=== PATIENT | male | born 1975 | race Caucasian/White ===

== ENCOUNTER 2019-01-26 19:28 | Emergency (ER) | payer OTHER, SELFPAY ==
[2019-01-26 19:33] VITALS: BP 133/81; PULSE 66; RESP 16; TEMP 36.7; O2SAT 99
--- NOTE | 2019-01-26 19:58 | ED.GENADUL_ITS ---
Discharge Plan Disposition Patient Disposition: HOME Condition: Good Discharge Details Chief Complaint: Orthopedic Clinical Impression: Cellulitis of left anterior lower leg Primary Care Provider: Marty Alanis ED Provider: Hood Ruiz [place] Meds and New Rx's Prescriptions: New cephalexin 500 mg capsule 500 mg PO Q8H Qty: 17 RF: 0 Changed ibuprofen [Advil] 200 mg Tablet 600 mg PO Q6H PRNQty: 0 RF: 0 Discharge Instructions Instructions: Cellulitis (ED) Additional Instructions: Continue ibuprofen or acetaminophen as needed for discomfort. Antibiotic as directed. Follow-up with primary care next week if continued problems. Return to ED for increased pain, swelling, redness or any fever or chills. Referrals: Marty Alanis, [Primary Care Provider] - Medical Decision Making At this point would appear the patient has developed a cellulitis. It does not sound like he had any significant hematoma or bruising to attribute this to resolving hematoma. There was no obvious skin trauma but there must have been enough micro-abrasion to allow for bacterial injury. He is not febrile and otherwise looks well. We will place him on a course of cephalexin for 1 week. Continue ibuprofen or acetaminophen as needed for discomfort. Follow-up with primary care next week if not better. Return to ED for increasing pain, swelling, redness, fever or chills. HPI General Mode of arrival: ambulatory . Date/Time Provider Initiated Documentation: 01/26/19 19:41 . Limitations to Documentation: no limitations . Information obtained by: patient and RN notes reviewed . HPI Narrative: Patient presents to ED with continued pain and now some redness and swelling to the left crowell. Patient struck his crowell on a ladder which he has done in the past. This was about 10 days ago. There was no significant hematoma, bruising, skin breakage. He has been using ibuprofen as needed for discomfort. Thought it would get better and go away on its own like it has in the past. However, it has been getting worse and now has associated redness and swelling which was not there previously. He denies being ill otherwise. There is no fevers, chills, weakness. Related Data Home Medications Medication Instructions Recorded Confirmed cephalexin 500 mg PO Q8H #17 cap 01/26/19 ibuprofen [Advil] 600 mg PO Q6H PRN #0 tab 01/26/19 01/26/19 Previous Rx's Medication Instructions Recorded cephalexin 500 mg PO Q8H #17 cap 01/26/19 ibuprofen [Advil] 600 mg PO Q6H PRN #0 tab 01/26/19 Allergies Allergy/AdvReac Type Severity Reaction Status Date / Time No Known Allergies Allergy Verified 01/26/19 19:36 General Stated Complaint: Orthopedic TOÑO: 4 Review of Systems Narrative: As documented in HPI otherwise negative as below. Const: no fever, chills, weakness Resp: no cough, SOB, pleuritic pain CV: no CP, diaphoresis, edema, syncope GI: no abdominal pain, nausea, vomiting, diarrhea Neuro: no headache, numbness, focal weakness, confusion PFSH Surgical History (Updated 01/26/19 @ 20:08 by Hood Ruiz MD) Previous back surgery (Inactive) Social History Smoking/Tobacco Use Status: Never Drug use: Never Exam Const General: cooperative, comfortable and no acute distress Orientation: alert and oriented x3 Skin Trauma: no lacerations or abrasions Wounds: no wounds Extrem Other: Left lower extremity with tenderness, redness, mild swelling involving the lower medial aspect of the crowell. There is no calf tenderness. There is no generalized edema. There is no bony tenderness present. Normal range of motion at knee and ankle. Neurovascularly intact distally. Course Vital Signs Vital signs: Vital Signs Temperature 98.1 F 01/26/19 19:33 Pulse 66 01/26/19 19:33 Respiratory Rate 16 01/26/19 19:33 Blood Pressure 133/81 01/26/19 19:33 Pulse Oximetry 99 01/26/19 19:33 Temperature 98.1 F 01/26/19 19:33 Temperature Source Skin 01/26/19 19:33 Pulse 66 01/26/19 19:33 Respiratory Rate 16 01/26/19 19:33 Respiratory Effort Non-Labored 01/26/19 19:43 Blood Pressure 133/81 01/26/19 19:33 Blood Pressure Position Sitting 01/26/19 19:33 Pulse Oximetry 99 01/26/19 19:33 Oxygen Delivery Method Room Air 01/26/19 19:33 Oxygen Flow Rate 0 01/26/19 19:33 Pain Level 6 01/26/19 19:33
[2019-01-26] MEDS: Cephalexin 500 MG CAP, 4 CAPS/BTL PO (20:04)
== END 2019-01-26 20:10 | disposition home or self-care (01) ==
PROVIDERS: Emergency Provider Emergency Medicine; PCP Emergency Medicine
DX: L03.116 Cellulitis of left lower limb (principal); W22.8XXA Striking against or struck by other objects, initial encounter
CPT/HCPCS: 99283

== ENCOUNTER 2019-12-27 10:51 | Outpatient (CLI) | payer OTHER, SELFPAY ==
[2019-12-31 17:42] LABS: Patient Race White; SARS-CoV-2 RNA Undetected (Undetected); SARS-CoV-2 Specimen Source Nasal
== END 2019-12-27 11:11 ==
PROVIDERS: PCP Emergency Medicine; Visit Provider Emergency Medicine
DX: Z20.828 Contact with and (suspected) exposure to other viral communicable diseases (principal)
CPT/HCPCS: U0003

== ENCOUNTER 2020-01-07 01:47 | Outpatient (CLI) | payer OTHER, SELFPAY ==
[2020-01-11 20:58] LABS: Patient Race White; SARS-CoV-2 RNA Undetected (Undetected); SARS-CoV-2 Specimen Source Nasal
== END 2020-01-07 02:07 ==
PROVIDERS: PCP Emergency Medicine; Visit Provider Emergency Medicine
DX: Z11.59 Encounter for screening for other viral diseases (principal)
CPT/HCPCS: U0003

== ENCOUNTER 2020-07-12 19:11 | Outpatient (REF) | payer OTHER, SELFPAY ==
[2020-07-12 19:04] LABS: Calculated LDL 80 mg/dL (<100); Cholesterol 143 mg/dL (<200); HDL Cholesterol 46 mg/dL (40-60); Triglyceride 87 mg/dL (<150)
== END 2020-07-12 19:12 | disposition home or self-care (01) ==
LOC: NCHCN 19:11
PROVIDERS: PCP Emergency Medicine; Visit Provider Emergency Medicine
DX: Z00.00 Encounter for general adult medical examination without abnormal findings (principal); Z13.220 Encounter for screening for lipoid disorders
CPT/HCPCS: 80061

== ENCOUNTER 2021-01-07 16:47 | Emergency (ER) | payer OTHER, SELFPAY ==
[2021-01-07 16:57] VITALS: BP 119/68; PULSE 60; RESP 16; TEMP 37; O2SAT 99
--- NOTE | 2021-01-07 17:20 | ED.GENADUL_ITS ---
Discharge Plan Disposition Patient Disposition: HOME Condition: Improving Discharge Details Clinical Impression: Cellulitis of left leg Primary Care Provider: Marty Alanis ED Provider: Robert Oswald Home Meds and New Rx's Prescriptions: New doxycycline monohydrate 100 mg tablet 100 mg PO BID 7 Days Qty: 14 RF: 0 Continued triamcinolone acetonide 0.1 % cream 1 applic TP TID Qty: 80 RF: 0 Discharge Instructions Instructions: Cellulitis (ED) Additional Instructions: Elevate the leg above the level of the heart to reduce pain and swelling. I will ask our care management team to arrange a follow-up for you in vascular clinic for further evaluation. Return to the emergency room for any acute concerns. Take doxycycline as prescribed until finished. Medical Decision Making 45-year-old male presents with recurrence of left lower extremity cellulitis th at began this time after striking his anterior crowell on a hard object and suffering an abrasion. States he has had recurrent episodes of infections in that leg with poor healing for years time. He is otherwise well-appearing, is not a diabetic, and does appear to have a developing left lower extremity cellulitis. He questions referral for vascular lab testing to rule out underlying malperfusion which I do think is reasonable and care management to intact. I will place him on a course of doxycycline. He is stable and appropriate for discharge at this time. HPI General Mode of arrival: ambulatory . Date/Time Provider Initiated Documentation: 01/07/21 16:48 . Limitations to Documentation: no limitations . Information obtained by: patient . History of Present Illness 45 year old M presents to the emergency department with the chief complaint of Left crowell erythema, described as mild and similar to prior episodes, Quality is described as dull and constant, and is localized to the left and lower extremity. Patient reports no radiation. Patient started experiencing this hour(s) and it has been constant. No relieving factors improve symptom(s), No exacerbating factors reported . Patient notes denies fever/chills. Patient did receive the following treatments prior to arrival, none Related Data Home Medications Medication Instructions Recorded Confirmed triamcinolone acetonide 0.1 % 1 applic TP TID #80 gm 04/29/19 01/07/21 topical cream doxycycline monohydrate 100 mg PO BID 7 Days #14 tab 01/07/21 Previous Rx's Medication Instructions Recorded triamcinolone acetonide 0.1 % 1 applic TP TID #80 gm 04/29/19 topical cream doxycycline monohydrate 100 mg PO BID 7 Days #14 tab 01/07/21 Allergies Allergy/AdvReac Type Severity Reaction Status Date / Time No Known Allergies Allergy Verified 01/07/21 17:06 General Stated Complaint: Cellulitis TOÑO: 3 Review of Systems Narrative: 6 systems reviewed and otherwise negative [facility] Medical History Encounter for annual physical exam Varicose veins of left lower extremity Surgical History Previous back surgery Family History Mother No problems noted. Father No problems noted. Sister No problems noted. Sister No problems noted. Brother Depression Son No problems noted. Daughter No problems noted. Social History Smoking/Tobacco Use Status: Never Second Hand Exposure: Yes Smoking risk assessment performed?: Yes Alcohol Intake: current Alcohol Intake frequency: a few times a month Alcohol type: beer Drug use: Never Caregiver/Support person: No Household members: spouse and children Housing: house Pets and animals: Yes Sexually active: Yes Do you think of yourself as: straight/heterosexual Current gender identity: male What is your relationship status?: How often do you talk on the phone with friends or family?: three or more times per week How often do you get together with friends or relatives?: once per week How often do you attend oriental orthodox or temple services?: decline to answer Do you belong to any clubs or organized social groups?: no Panel score (0-1 are the most socially isolated patients): 2 What type of physical activity do you participate in: bicycling Duration: > 90 minutes/day Frequency: 1-2 times per week Seatbelt use: always Helmet use: Yes Helmet use: always Drive intox or ride w/intox wheelchair driver: No Do you feel safe at home: Yes Do you feel safe in your relationship?: Yes Exam Narrative Exam Narrative: GEN: awake, alert, oriented 3. Pleasant, well groomed, interactive. HEAD: Normocephalic, atraumatic ENT: Mucous membranes moist, oropharynx unremarkable, External ear exam unremarkable EXT: Full ROM, left mid anterior tibia with area of healing abrasion with surrounding erythema and warmth Neuro: Grossly normal neurologic exam, conversant, interactive. Psych: Speech fluent, thoughts congruent, affect normal Course Vital Signs Vital signs: Vital Signs Temperature 37 C 01/07/21 16:57 Pulse 60 01/07/21 16:57 Respiratory Rate 16 01/07/21 16:57 Blood Pressure 119/68 01/07/21 16:57 Pulse Oximetry 99 01/07/21 16:57 Temperature 37 C 01/07/21 16:57 Temperature Source Temporal Artery Scan 01/07/21 16:57 Pulse 60 01/07/21 16:57 Respiratory Rate 16 01/07/21 16:57 Respiratory Effort Non-Labored 01/07/21 17:03 Blood Pressure 119/68 01/07/21 16:57 Blood Pressure Position Sitting 01/07/21 16:57 Pulse Oximetry 99 01/07/21 16:57 Oxygen Delivery Method Room Air 01/07/21 16:57 Oxygen Flow Rate 0 01/07/21 16:57 Pain Level 7 01/07/21 16:57 PAWSS Have you Been Recently Intoxicated or Drunk Within the Last 30 days?: No Have you Ever Experienced Previous Episodes of Alcohol Withdrawal?: No Have you ever Experienced Withdrawal Seizures?: No Have you ever Experienced Delirium Tremens(DT)s?: No Have you ever undergone Alcohol Rehabilitation Treatment (i.e, inpt ot outpatient treatment programs)?: No Have you ever Experienced Blackouts?: No Have you ever Combined Alcohol with other Downers within the last 90 days?: No Have you ever Combined Alcohol with any other Substance of Abuse during the last 90 days?: No Positive Blood Alcohol level on Presentation? [PCS.BAL]: No Evidence of Increased Autonomic Activity (i.e. HR>120, tremor, sweating, agitation, nausea)?: No Result: 0
--- NOTE | 2021-01-07 17:27 | NUR.NOTE ---
Nursing Note: Referral given to Care Management to Vascular Surgery Clinic [facility] [place], for chronic poor healing left leg within 4 to 8 weeks. Liz Hackett
[2021-01-07] MEDS: Doxycycline Hyclate 100 MG, 2 CAPS/BTL PO (17:29)
--- NOTE | 2021-01-09 12:32 | CMPROGNOTE_ITS ---
- If Service Date Differs Date of service: 01/08/21 Time of Service: 12:32 Care Management Progress Note Florencio is seen in the ED for cellulitis of left leg. At the request of ED provider, CM coordinates a referral to [facility] [place] Vascular Surgery to assist Florencio in obtaining an appointment for evaluation and treatment.
== END 2021-01-07 17:32 | disposition home or self-care (01) ==
PROVIDERS: Emergency Provider Emergency Medicine; PCP Emergency Medicine
DX: L03.116 Cellulitis of left lower limb (principal)
CPT/HCPCS: 99283

== ENCOUNTER 2023-03-31 10:08 | Day surgery (SDC) | payer OTHER, SELFPAY ==
--- NOTE | 2023-03-30 13:38 | W.PM.DSUDISC ---
Date of service: 03/31/23 Time of Service: 12:23 Discharge Plan Disposition Patient Disposition: Home Condition: Good Discharge Details Reason For Visit: screening colonoscopy Attending Provider: Michael Mac Primary Care Provider: Souleymane Way Home Meds and New Rx's Prescriptions: Continued triamcinolone acetonide 0.1 % cream 1 applic TP TID Qty: 80 1RF Discontinued bisacodyl [Dulcolax (bisacodyl)] 5 mg tablet,delayed release (DR/EC) 5 mg PO ONCE Qty: 4 0RF Rx Instructions: Colonoscopy Bowel Prep- Per Instructions polyethylene glycol 3350 17 gram/dose powder 238 g PO ONCE Qty: 238 0RF Rx Instructions: Colonoscopy Bowel Prep- Per Instructions Discharge Instructions Additional Instructions: Florencio, we are able to complete your colonoscopy today without any difficulty. It was totally normal. Because of your family history of colorectal cancer. I recommend a 5-year screening interval for your next few colonoscopies. If those are all normal, you could give stronger consideration to the timing. 1. If tolerated, consume a soft, low fiber diet for 1-2 days. 2[address] Do not drive, drink alcohol, operate machinery, make critical decisions, or do activities that require coordination or balance for 24 hours. 3. Because air was put into your colon during the procedure, expelling air from your rectum (passing gas or farting) is normal. 4. You may not have a bowel movement for 1-3 days because of the colonoscopy prep. This is normal. 5. Go directly to the emergency room if you notice any of the following: Develop chills (warm to touch), or if you have a thermometer and your temperature is above 101 Difficulty breathing or difficultly swallowing Persistent vomiting Severe abdominal pain, other than gas cramps Severe chest pain Black, tarry stools Any bleeding ? exceeding one tablespoon 6. Call your physician if the site where your intravenous was started becomes red, swollen, painful, and warm to touch. 7. Your physician has reviewed your pre-procedure medications. Please continue to take those medications as previously ordered. You will be given specific information/education regarding any changes to your medications before leaving. Activity:: Activity as Tolerated Diet:: As Tolerated Discharge Orders Discharge Orders: Discharge Order (Routine); Ordered 03/30/23 Ordered By: Michael Mac DS: Diagnosis Discharge Diagnosis (1) Encounter for screening colonoscopy: Status: Acute Asessment and Plan: Negative screening colonoscopy; based on family history, recommend 5-year interval
--- NOTE | 2023-03-30 13:39 | COLE_ITS ---
Date of service: 03/31/23 Time of Service: :24 Colonoscopy Report Date of procedure: 03/31/23 Pre-op diagnosis general: screening colonoscopy Post-op diagnosis procedure note: other (Negative screening colonoscopy) Procedure: Colonoscopy Surgeon: Michael Mac Anesthesia Type: General:No Airway Estimated blood loss (mL): 0 Pathology: none sent Complications: None Disposition: same day Indications: Gus is 47 years old and he needs his first screening colonoscopy Prep: Miralax/Dulcolax Procedure Start Time: 12:01 Procedure End Time: 12:17 Retraction Time: 7 Findings: Negative screening colonoscopy Procedure Description: After the induction of monitored anesthetic care, and with the patient in left lateral decubitus position, I began by performing an external anorectal exam.? Perineum and skin were normal, as was the anal verge.? There was no evidence of external hemorrhoids.? Next, I performed a digital rectal exam.? I did not appreciate any abnormal findings.? Next, I advanced a colonoscope into the rectal vault.? I performed retroflexion.? This was normal.? Using insufflation, I then advanced the colonoscope beyond the rectal folds and into the sigmoid colon before advancing towards the cecum.? The scope was noted to be in the cecum by identification of the ileocecal valve and appendiceal orifice.? I then began withdrawing the colonoscope using repeated irrigation as necessary for full evaluation of the colonic mucosa. ?Once the scope was withdrawn to the level of the rectum, great care was taken to examine portions of the rectal folds.? Finally, the scope was withdrawn and the patient was brought to the same-day surgery recovery unit as the anesthetic wore off. I did not see any signs of tumors, polyps, or any other pathology. ?The findings and instructions were shared with the patient prior to discharge. [place] Bowel Prep [place] Bowel Prep Right Colon: 3 Left Colon: 3 Transverse Colon: 3 Total Score: 9
[2023-03-31 10:34] VITALS: BP 97/67; PULSE 51; RESP 16; TEMP 36.6; O2SAT 98
[2023-03-31] MEDS: Lactated Ringers 1,000 ML 80 ML IV (10:40)
--- NOTE | 2023-03-31 10:53 | ANES.PREOP_ITS ---
General Info Date of Service Date Performed: 03/31/23 Height: 5 ft 11 in Weight: 77.4 kg Body Mass Index (BMI): 23.8 Surgical Procedure: Operation Date: 03/31/23 11:35 Proposed Procedure Side Surgeon neli Mac MD Meds Allergies and Home Medications Allergies Allergy/AdvReac Type Severity Reaction Status Date / Time No Known Allergies Allergy Verified 03/31/23 10:33 Home Medication Medication Instructions Recorded triamcinolone acetonide 0.1 % 1 applic topical TID #80 grams 07/16/21 topical cream Current Visit Medications: Current Medications Generic Name Dose Route Start Last Admin Trade Name Freq PRN Reason Stop Dose Admin Hyoscyamine Sulfate 0.125 mg 03/30/23 13:41 Hyoscyamine 0.125 Mg Sl/Oral/Chew SL 04/29/23 13:40 DIRECTED PRN Ringer's Solution 1,000 mls @ 80 mls/hr 03/31/23 06:00 03/31/23 10:40 IV 03/31/23 23:59 80 mls/hr INFUSION KAUR Administration IV Miscellaneous Supplies 1 each 03/31/23 06:00 Iv Access IV 03/31/23 23:59 DIRECTED KAUR Ondansetron HCl 4 mg 03/30/23 13:41 Ondansetron 4 Mg/2 Ml Vial IVP 04/29/23 13:40 Q4H PRN PRN Nausea / Vomiting Sodium Chloride 0 ml 03/31/23 06:00 Normal Saline Flush 10 Ml Syr IV 03/31/23 23:59 PRN PRN Sodium Chloride 0 ml 03/31/23 06:00 Normal Saline 10 Ml Vial IJ 03/31/23 23:59 DIRECTED PRN Sterile Water 0 ml 03/31/23 06:00 Water,Injection,Sterile 10 Ml Vial IJ 03/31/23 23:59 DIRECTED PRN PFSH Active Problems Active Problems: Problem Status Onset Code Encounter for screening colonoscopy Z12.11 Left shoulder pain M25.512 Prepatellar bursitis M70.40 Tick borne fever A93.8 Varicose veins of left lower extremity I83.92 Medical History Medical History Cellulitis of left leg 12/2020 Low back strain Surgical History Surgical History History of back surgery Remote, removal of benign cystic lower back History of varicose vein ligation 2021-vascular surgery, at [facility], left leg Tobacco Smoking/Tobacco Use Status: Never Passive smoking exposure: No Second hand exposure: No Alcohol Alcohol Intake: current Alcohol intake frequency: a few times a month Alcohol type: beer Substance Use Substance use: Never Substance use type: does not use Vital Signs and Lab Results Vital Signs Most Recent Vital Signs in EMR: Most Recent Vital Signs Temp Pulse Resp BP Pulse Ox 36.6 C 51 L 16 97/67 L 98 03/31/23 10:34 03/31/23 10:34 03/31/23 10:34 03/31/23 10:34 03/31/23 10:34 Lab Results Blood Type / Crossmatch: No Data to Display Complete Blood Count: No Data to Display Complete Metabolic Panel: No Data to Display Liver Function Panel: No Data to Display Coagulation Panel: No Data to Display Cardiac Panel: No Data to Display Arterial Blood Gas: No Data to Display Venous Blood Gas: No Data to Display Pancreas Panel: No Data to Display Thyroid Panel: No Data to Display Infectious Disease: No Data to Display Blood Cultures: No Data to Display Toxicology Panel: No Data to Display Anesthesia Assessment and Plan Anesthesia History Personal History: No History of Anesthesia Complications Family History: No Family History of Anesthesia Complications Exercise Tolerance Exercise Tolerance: Metabolic Equivalents>4 Pertinent Negatives Pertinent Negatives: No Symptoms of GERD Cardiac & Pulmonary Exam Cardiac Exam: Normal S1/S2 Heart Sounds Pulmonary Exam: Clear Bilateral Breath Sounds Implantable Cardiac Device Does patient have a Pacemaker or an ICD?: No Airway Exam Known Difficult Airway: No Mallampati Class: 1 Mouth Opening: Normal (> 3cm) Thyromental Distance: Greater than 3 cm Neck Range of Motion: Full ROM Neck Circumference: Normal Teeth Condition: Normal Dentition ASA Classification ASA Score: ASA 1 Emergency Case?: No NPO Status NPO Status: NPO Clears >2 hours, Solids >8 hours Anesthesia Plan Resuscitation Status: Full Code Anesthesia Technique: General Anesthesia Airway Planned: Natural Airway Monitors Used: Standard Monitors
[2023-03-31 10:54] VITALS: BMI 23.8
[2023-03-31 12:21] VITALS: BP 97/71; PULSE 68; RESP 18; TEMP 36.1; O2SAT 96
--- NOTE | 2023-03-31 12:25 | W.ANESPOSTOP ---
Postoperative Evaluation Date, Time and Location Date Performed: 03/31/23 Time Performed: 12:25 Patient Location: Day Surgery Unit Vital Signs Most Recent Imported Vital Signs: Most Recent Vital Signs Temp Pulse Resp BP Pulse Ox 36.1 C L 68 18 97/71 L 96 03/31/23 12:21 03/31/23 12:21 03/31/23 12:21 03/31/23 12:21 03/31/23 12:21 Pain Score Most Recent Pain Score: Most Recent Pain Score Pain Level 0 03/31/23 10:34 Assessment Mental Status: Awake (Alert & Oriented to Patient Baseline) Airway and Respiratory Function: Patent airway with normal (patient baseline) respiratory exam Cardiovascular Function: Hemodynamically Stable Hydration Status: Adequately Hydrated Nausea & Vomiting: No Nausea or Vomiting Pain: Pt. Denies Any Pain Peripheral Nerve Block: Patient did not receive a nerve block
[2023-03-31 12:47] VITALS: BP 105/78; PULSE 53; RESP 18; TEMP 36.7; O2SAT 100
== END 2023-03-31 13:00 | disposition home or self-care (01) ==
PROVIDERS: PCP Nurse Practitioner Family; Visit Provider Surgery
PROC: 0DJD8ZZ Inspection of Lower Intestinal Tract, Via Natural or Artificial Opening Endoscopic (ICD-10-PCS; CPT 45378; principal; 2023-03-31 11:30)
DX: Z12.11 Encounter for screening for malignant neoplasm of colon (principal)
CPT/HCPCS: 45378; J2001; J2704

== ENCOUNTER 2023-08-11 05:52 | Outpatient (CLI) | payer OTHER, SELFPAY ==
[2023-08-11 12:54] LABS: Calculated LDL 91 mg/dL (<100); Cholesterol 156 mg/dL (<200); HDL Cholesterol 56 mg/dL (40-60); Triglyceride 48 mg/dL (<150)
[2023-08-11 13:07] LABS: Hemoglobin A1C 5.3 % (<5.7)
== END 2023-08-11 05:53 | disposition home or self-care (01) ==
LOC: LOS 05:52
PROVIDERS: PCP Nurse Practitioner Family; Visit Provider Nurse Practitioner Family
DX: Z13.220 Encounter for screening for lipoid disorders (principal); Z13.1 Encounter for screening for diabetes mellitus
CPT/HCPCS: 36415; 80061; 83036

== ENCOUNTER → 2023-09-23 02:34 | Outpatient (CLI) | payer OTHER, SELFPAY ==
--- NOTE | 2023-09-23 07:45 | DI.RAD_ITS ---
Exam(s) XR SACRUM COCCYX EXAM: XR SACRUM COCCYX CLINICAL HISTORY: Continued pain x 3 months/failing PT,COCCYDYNIA,M53.3. TECHNIQUE: 2D digital imaging was performed. Three images were obtained. COMPARISON: CT RENAL COLIC WO CONTRAST from 12/08/2011 FINDINGS: BONES: No acute fracture is present. No bony destructive lesion is seen. There is a stable sclerotic focus in the right inferior pubic ramus consistent with a bone island. There is also stable cystic l esion in the left iliac bone. These were both present on the CT scan from 12/08/2011. JOINTS: No dislocation present. The sacroiliac joints are well maintained. No erosions or ankylosis is present. SOFT TISSUE: Normal. IMPRESSION: No acute abnormality. DATA REPOSITORY: RADIATION DOSE DELIVERED:
== END ==
PROVIDERS: PCP Nurse Practitioner Family; Visit Provider Nurse Practitioner Family
DX: M53.3 Sacrococcygeal disorders, not elsewhere classified (principal)
CPT/HCPCS: 72220

== ENCOUNTER 2023-11-05 02:11 | Outpatient (CLI) | payer OTHER, SELFPAY ==
--- NOTE | 2023-11-05 14:30 | DI.MRI_ITS ---
Exam(s) MR PELVIS WO EXAM: MR PELVIS WO CLINICAL HISTORY: Failing PT/ Severe pain of coccyx,COCCYDNIA,M53.3 TECHNIQUE: Multiplanar multisequence MRI of Pelvis was performed. CONTRAST MATERIAL: Noncontrast COMPARISON: CR XR SACRUM COCCYX from 09/23/2023 FINDINGS: Bones: There is marrow edema in the left segment of the coccyx which could indicate contusion. No s urrounding fluid collection or hematoma. The SI joints and symphysis pubis are well maintained. No hip joint effusions. Musculotendinous structures: Musculotendinous structures demonstrate no abnormality. Intrapelvic structures demonstrate no significant abnormality. Prostate and seminal vesicles as wel l as bladder are unremarkable. IMPRESSION: Edema in the tip of the coccyx consistent with contusion. DATA REPOSITORY:
== END 2023-11-05 02:31 ==
LOC: DI 02:11
PROVIDERS: PCP Nurse Practitioner Family; Visit Provider Nurse Practitioner Family
DX: M53.3 Sacrococcygeal disorders, not elsewhere classified (principal)
CPT/HCPCS: 72195

== ENCOUNTER 2024-03-03 18:22 | Outpatient (CLI) | payer BC, SELFPAY ==
[2024-03-03 15:48] LABS: Abs Immature Grans 0.01 10^3/uL (0.0-0.06); Absolute Basophil Count 0.02 10^3/uL (0.0-0.2); Absolute Eosinophil Count 0.07 10^3/uL (0.0-0.7); Absolute Lymphocyte Count 1.78 10^3/uL (1.2-3.4); Absolute Monocyte Count 0.44 10^3/uL (0.1-0.8); Basophils % 0.4 %; Eosinophils % 1.2 %; HCT 42.2 % (40.0-50.0); HGB 14.4 g/dL (13.5-17.5); Immature Grans % 0.2 %; Lymphocytes % 31.7 %; MCH 30.7 pg (27.0-33.0); MCHC 34.1 % (32.0-36.0); MCV 90 fL (80-95); MPV 9.3 fL (8.0-11.0); Monocytes % 7.8 %; Neutrophils % 58.7 %; Platelet Count 204 10^3/uL (130-400); RBC 4.69 10^6/uL (4.36-5.78); RDW 11.7 % (11.8-14.1); RDW-SD 38.2 fL; WBC 5.62 10^3/uL (4.4-10.8)
[2024-03-03 16:36] LABS: Iron 103 ug/dL (65-175); Total Iron Binding Capacity 250 ug/dL (250-450)
[2024-03-03 16:47] LABS: ALT 25 U/L (16-63); AST 23 U/L (15-37); Albumin 3.9 g/dL (3.4-5.0); Alkaline Phosphatase 54 U/L (46-116); Anion Gap 5.4 mmol/L (3-11); BUN 15 mg/dL (7-18); CO2 31.6 mmol/L (21.0-32.0); Calcium 9.1 mg/dL (8.5-10.1); Chloride 106 mmol/L (98-107); Estimated GFR 93.42 (mL/min/1.73m2); Ferritin 195 ng/mL (26-388); Glucose 87 mg/dL (74-106); Potassium 4.1 mmol/L (3.5-5.1); Sodium 143 mmol/L (136-145); TSH (W/Ref FT4) 1.56 uIU/mL (0.36-3.74); Vitamin B12 179 pg/mL (193-986)
[2024-03-04 10:34] LABS: Transferrin 189 mg/dL (201-352)
== END 2024-03-03 18:23 | disposition home or self-care (01) ==
LOC: LBO 18:24
PROVIDERS: PCP Nurse Practitioner Family; Visit Provider Nurse Practitioner Family
DX: R23.1 Pallor (principal); R23.2 Flushing
CPT/HCPCS: 36415; 80053; 82607; 82728; 83540; 83550; 84443; 84466; 85025